=== PATIENT | female | born 1960 | race Hispanic/Latino ===

== ENCOUNTER 2019-03-03 14:05 | Outpatient (CLI) | payer OTHER ==
--- NOTE | 2019-03-03 14:57 | MMO ---
Bilateral MAMMO Bilat Diag [facility]. CLINICAL HISTORY: Patient is 58 years old and is seen for diagnostic exam. VIEWS: The views performed were: bilateral craniocaudal with tomosynthesis; bilateral mediolateral oblique with tomosynthesis; and bilateral mediolateral with tomosynthesis. FILMS COMPARED: The present examination has been compared to prior imaging studies performed at [facility] on 03/03/2019, and at [facility] on 10/25/2010 and 02/05/2018. This study has been interpreted with the assistance of computer-aided detection. MAMMOGRAM FINDINGS: There are scattered fibroglandular densities. Finding 1: There is a stable mass measuring 5 millimeters seen in the middle region of the right breast at 10 o'clock. This mass is small and slightly hyperechoic on sonogram. Finding 2: There are benign appearing calcifications seen in both breasts. IMPRESSION: FINDING 1: STABLE MASS IN THE RIGHT BREAST IS PROBABLY BENIGN. FOLLOW-UP IN 1 YEAR IS RECOMMENDED. THE PATIENT WAS INFORMED OF THE EXAM RESULTS. FINDING 2: CALCIFICATIONS IN BOTH BREASTS ARE BENIGN. THE RESULTS OF THIS EXAM WERE SENT TO THE PATIENT. ACR BI-RADS Category 3 - Probably benign finding - short interval follow-up suggested. [facility] will notify the patient of the need for additional imaging services. MAMMOGRAPHY NOTE: 1. A negative mammogram report should not delay a biopsy if a dominant of clinically suspicious mass is present. 2. Approximately 10% to 15% of breast cancers are not detected by mammography. 3. Adenosis and dense breasts may obscure an underlying neoplasm. Reported by: NGUYEN IYER MD Electonically Signed: [id number]
--- NOTE | 2019-03-03 15:57 | ULT ---
RIGHT BREAST DIAGNOSTIC ULTRASOUND: 03/03/19 INDICATION: Follow-up right breast mass in the right breast 10 o'clock position, 7 cm from the nipple. COMPARISON: Bilateral screening mammogram dated 03/03/19. FINDINGS: Corresponding to the small nodular mass seen at the right breast 10 o'clock position is a 0.56 x 0.5 x 0.3 cm echogenic mass possibly reflecting a small, slightly atypical intramammary lymph node. This was reported on the outside exams with similar size measurements. No additional sonographic abnorma lity seen within this region. IMPRESSION: BIRADS 3: Probably Benign Finding Initial Short-Interval Follow-Up Suggested Initial short-term follow up (usually 6-month) examination Recommend mammographic and sonographic follow-up of the right breast lesion in one year. At that time , patient will be due for bilateral screening evaluation. POS: OFF
== END 2019-03-03 14:06 | disposition home or self-care (01) ==
LOC: BICMAMMO 14:05
PROVIDERS: ATTEND Family Medicine
DX: N63.11 Unspecified lump in the right breast, upper outer quadrant (principal)
CPT/HCPCS: 77066; G0279